=== PATIENT | male | born 1960 | race Caucasian/White ===

== ENCOUNTER → 2021-08-08 | Outpatient (CLI) | payer OTHER | LOC: HEART CORB 13:59 | DX: R00.1 Bradycardia, unspecified (principal); R42 Dizziness and giddiness | CPT/HCPCS: 93306 ==

== ENCOUNTER → 2021-11-06 | Outpatient (CLI) | payer OTHER ==
[2021-11-06 16:16] LABS: HEMOGLOBIN 15.7 gm/dl (14.0-17.5); RED BLOOD COUNT 5.36 M/UL (4.20-5.50); WHITE BLOOD COUNT 5.3 K/UL (4.5-11.0)
== END ==
LOC: LAB 15:17
PROVIDERS: Internal Medicine Cardiovascular Disease
DX: I49.5 Sick sinus syndrome (principal); R55 Syncope and collapse
CPT/HCPCS: 36415; 71046; 80048; 85025

== ENCOUNTER → 2022-01-14 | Outpatient (CLI) | payer OTHER ==
[~2022-01-14] MED LIST: ALBUTEROL2.5 MG/3 M INH; CLINDAMYCIN HC300 MG PO; CO Q-10100 MG PO; ELIQUIS5 MG PO; FISH OIL 1,0001 EACH PO; FLOMAX0.4 MG PO; FUROSEMIDE20 MG PO; HYDROCODON-ACE1 EAC4 PO; HYDROXYZINE HCL25 MG PO; LEVOFLOXACIN500 MG PO; LIDOCAINE PAIN1 EACH TOP; LOPRESSOR 25 MG25 MG PO; PRAVASTATIN SOD80 MG PO; PREGABALIN100 MG PO; PROTONIX40 MG PO; SYNTHROID125 MCG PO; TRICOR 145 MG145 MG PO; VITAMIN D350 MC3 PO; ZOLOFT100 MG PO
[2022-01-14 15:37] LABS: HEMOGLOBIN 15.9 gm/dl (14.0-17.5); RED BLOOD COUNT 5.45 M/UL (4.20-5.50); WHITE BLOOD COUNT 5.3 K/UL (4.5-11.0)
[2022-01-14 15:45] LABS: BUN/CREATININE RATIO 9 (0-10)
== END ==
LOC: RAD 15:04
PROVIDERS: Internal Medicine Cardiovascular Disease
DX: I49.5 Sick sinus syndrome (principal); R53.83 Other fatigue
CPT/HCPCS: 36415; 71046; 80048; 85025

== ENCOUNTER 2022-01-16 12:28 | Outpatient (CLI) | payer OTHER ==
[~2022-01-16] VITALS: Ht 188 cm; Wt 108.0 kg
[2022-01-16] MEDS ORDERED: ALBUTEROL2.5 MG/3 M INH (13:16)
[2022-01-16] MEDS ORDERED: ELIQUIS5 MG PO (13:17)
[2022-01-16] MEDS ORDERED: TRICOR 145 MG145 MG PO (13:17)
[2022-01-16] MEDS ORDERED: FUROSEMIDE20 MG PO (13:18)
[2022-01-16] MEDS ORDERED: HYDROXYZINE HCL25 MG PO (13:18)
[2022-01-16] MEDS ORDERED: LIDOCAINE PAIN1 EACH TOP (13:19)
[2022-01-16] MEDS ORDERED: SYNTHROID125 MCG PO (13:20)
[2022-01-16] MEDS ORDERED: PROTONIX40 MG PO (13:20)
[2022-01-16] MEDS ORDERED: PREGABALIN100 MG PO (13:21)
[2022-01-16] MEDS ORDERED: ZOLOFT100 MG PO (13:21)
[2022-01-16] MEDS ORDERED: PRAVASTATIN SOD80 MG PO (13:21)
[2022-01-16] MEDS ORDERED: VITAMIN D350 MC3 PO (13:22)
[2022-01-16] MEDS ORDERED: FLOMAX0.4 MG PO (13:22)
[2022-01-16] MEDS ORDERED: FISH OIL 1,0001 EACH PO (13:23)
[2022-01-16] MEDS ORDERED: CO Q-10100 MG PO (13:24)
[2022-01-16] MEDS ORDERED: LOPRESSOR 25 MG25 MG PO (16:17)
[2022-01-16] MEDS ORDERED: CLINDAMYCIN HC300 MG PO (16:17)
[2022-01-16] MEDS ORDERED: HYDROCODON-ACE1 EAC4 PO (16:17)
[2022-01-16] MEDS ORDERED: LEVOFLOXACIN500 MG PO (16:17)
== END 2022-01-17 10:20 | disposition home or self-care (01) ==
LOC: CATH 12:28 → M/S 16:52 → CATH 01-17 10:20
DX: I49.5 Sick sinus syndrome (principal); I48.92 Unspecified atrial flutter; J44.9 Chronic obstructive pulmonary disease, unspecified; K21.9 Gastro-esophageal reflux disease without esophagitis; E78.5 Hyperlipidemia, unspecified; E78.00 Pure hypercholesterolemia, unspecified; E03.9 Hypothyroidism, unspecified; Z79.01 Long term (current) use of anticoagulants; Z79.899 Other long term (current) drug therapy; Z87.891 Personal history of nicotine dependence
CPT/HCPCS: 33208; 71045; 75820; 93005; 94640; 94664; 94760; 99152; 99153; C1898; C2621; J0690; J1644; J2250; J3010; J3370; J7040; Q9965